=== PATIENT | female | born 1990 | race Caucasian/White ===

== ENCOUNTER 2016-05-25 08:29 | Emergency (ER) | payer OTHER ==
[~2016-05-25] VITALS: Ht 162.5 cm; Wt 88.0 kg
[2016-05-25 09:22] LABS: BASO % 0.5 % (0.0-1.0); EOS # 0.2 10*3/uL (0.0-0.4); EOS % 2.4 % (1.0-4.0); HEMATOCRIT 44.3 % (37.0-47.0); HEMOGLOBIN 14.8 g/dl (12.0-16.0); LYMPH # 2.6 10*3/uL (1.3-4.4); LYMPH % 33.1 % (27.0-41.0); MEAN CELL VOLUME 89.3 fl (81.0-99.0); MEAN CORPUSCULAR HGB 29.8 pg (27.0-31.0); MEAN CORPUSCULAR HGB CONC 33.4 g/dl (33.0-37.0); MEAN PLATELET VOLUME 10.5 fl (9.6-12.3); MONO # 0.5 10*3/uL (0.1-1.0); MONO % 6.4 % (3.0-9.0); NEUT # 4.5 10*3/uL (2.3-7.9); NEUT % 57.1 % (47.0-73.0); PLATELET COUNT AUTOMATED 259 10*3/uL (130-400); RED BLOOD COUNT 4.96 10*6/uL (4.10-5.10); WHITE BLOOD COUNT 7.9 10*3/uL (4.8-10.8)
[2016-05-25 09:30] LABS: INTERNATIONAL NORM RATIO 0.9 (2.0-3.5); PROTHROMBIN TIME 9.9 SECONDS (9.0-12.4)
[2016-05-25 09:39] LABS: ALBUMIN 3.5 gm/dl (3.1-4.5); ALKALINE PHOSPHATASE 127 U/L (45-117); BILIRUBIN, TOTAL 0.2 mg/dl (0.2-1.0); BUN 10 mg/dl (7-24); C-REACTIVE PROTEIN 4.34 MG/DL (0-0.3); CARBON DIOXIDE 27 mmol/L (21-32); CHLORIDE 107 mmol/L (98-107); CPK 84 U/L (26-192); EST GLOM FILT AFRICAN AMERICAN > 60 ml/min; GLUCOSE 115 mg/dL (65-99); MAGNESIUM 2.2 mg/dL (1.5-2.1); POTASSIUM 3.6 mmol/L (3.5-5.1); SGOT/AST 11 IU/L (3-35); SGPT/ALT 17 U/L (12-78); SODIUM 139 mmol/L (136-145); TOTAL PROTEIN 7.2 gm/dL (6.4-8.2)
[2016-05-25 09:40] LABS: CKMB < 0.5 ng/ml (0.5-3.6); TROPONIN I < 0.015 ng/ml (<0.045)
[2016-05-25] MEDS ORDERED: CYCLOBENZAPRINE10 MG PO (10:42)
[2016-05-25] MEDS ORDERED: HYDROCODONE BIT1 T11 PO (10:42)
== END 2016-05-25 11:20 | disposition home or self-care (01) ==
LOC: ED 08:29
PROVIDERS: Emergency Medicine
DX: S09.90XA Unspecified injury of head, initial encounter (principal); M54.2 Cervicalgia; M25.512 Pain in left shoulder; F41.9 Anxiety disorder, unspecified; F32.9 Major depressive disorder, single episode, unspecified; E78.5 Hyperlipidemia, unspecified; K21.9 Gastro-esophageal reflux disease without esophagitis; G43.909 Migraine, unspecified, not intractable, without status migrainosus; F17.200 Nicotine dependence, unspecified, uncomplicated; Z79.899 Other long term (current) drug therapy; V87.7XXA Person injured in collision between other specified motor vehicles (traffic), initial encounter; Y93.89 Activity, other specified; Y92.89 Other specified places as the place of occurrence of the external cause; Y99.8 Other external cause status

== ENCOUNTER → 2016-05-25 | Outpatient (CLI) | payer OTHER ==
[~2016-05-25] MED LIST: ALSUMA6 MG/0.5 M SC; AMOXICILLIN500 M2 PO; AMOXIL500 MG PO; ANAPROX DS550 MG PO; ATARAX25 MG PO; AURALGAN 15 ML15 ML OT; BRIN10TA PO; BUSPIRONE HCL10 MG PO; CELEXA10 MG PO; CIPRO250 MG PO; CLEOCIN150 MG PO; CORTISPORIN SUS10 ML OT; CYCLOBENZAPRINE10 MG PO; Fioricet 325 MG1 TAB PO; HYDROCODONE BIT1 T11 PO; IMITREX100 MG PO; INDERAL LA60 M1 PO; LASIX40 MG PO; LORAZEPAM1 MG PO; MAXALT10 MG PO; MOBIC15 MG PO; MOTRIN800 MG PO; Micro K10 MEQ PO; Motrin,Rufen800 MG PO; NAPROSYN500 MG PO; NEURONTIN300 MG PO; NEURONTIN600 MG PO; NKHM; NORCO 325 MG-51 TAB PO; PREDNICOT20 MG PO; PREDNISONE20 M1 PO; PRILOSEC40 M1 PO; PROCHLORPERAZIN10 M1 PO; ROBITUSSIN AC 10 MG/ PO; SEROQUEL400 M1 PO; TYLENOL W/CODEI1 TA2 PO; ULTRAM50 MG PO; VISTARIL50 MG PO; VITAMIN D50000 I3 PO; ZANAFLEX4 M1 PO; ZANTAC 150150 MG PO; ZOFRAN4 MG PO; ZOFRAN8 M1 PO; Zofran4 MG PO
[2016-05-25 17:06] LABS: FREE T4 0.74 ng/dl (0.76-1.46); THYROXINE (T4) TOTAL 5.4 ug/dl (4.8-13.9)
[2016-05-25 17:11] LABS: THYROID STIM HORMONE (HS) 0.814 uIU/ml (0.358-4.75)
[2016-05-26 06:14] LABS: TOTAL T3 (TT3) 002188 113 ng/dL (71-180)
[2016-05-26 08:19] LABS: RHEUMATOID ARTHRITIS FACTOR 10.8 IU/mL (0.0-13.9)
[2016-05-26 12:11] LABS: SJOGREN ANTI-SS-A <0.2 AI (0.0-0.9); SJOREN AB, ANTI-SS-B <0.2 AI (0.0-0.9)
[2016-05-26 16:15] LABS: LYME AB/TOTAL IMMUNOGLOBULINS <0.91 ISR (0.00-0.90)
== END | disposition home or self-care (01) ==
LOC: LAB 16:03
PROVIDERS: Internal Medicine Pulmonary Disease
DX: E28.2 Polycystic ovarian syndrome (principal); R06.02 Shortness of breath; R42 Dizziness and giddiness

== ENCOUNTER 2016-08-25 18:13 | Emergency (ER) | payer OTHER ==
[~2016-08-25] VITALS: Wt 83.5 kg
[2016-08-25] MEDS ORDERED: IMITREX100 MG PO (20:11)
== END 2016-08-25 20:05 | disposition home or self-care (01) ==
LOC: ED 18:13
DX: R51 Headache (principal); G43.909 Migraine, unspecified, not intractable, without status migrainosus; F17.200 Nicotine dependence, unspecified, uncomplicated; Z79.899 Other long term (current) drug therapy

== ENCOUNTER 2016-12-09 18:25 | Emergency (ER) | payer OTHER ==
[~2016-12-09] VITALS: Ht 165.1 cm; Wt 68.0 kg
[2016-12-09] MEDS ORDERED: NAPROSYN500 MG PO (19:41)
== END 2016-12-09 19:58 | disposition home or self-care (01) ==
LOC: ED 18:25
DX: T14.8XXA Other injury of unspecified body region, initial encounter (principal); V49.9XXA Car occupant (driver) (passenger) injured in unspecified traffic accident, initial encounter; Y92.488 Other paved roadways as the place of occurrence of the external cause; Y93.89 Activity, other specified; Y99.8 Other external cause status; F17.200 Nicotine dependence, unspecified, uncomplicated; F41.9 Anxiety disorder, unspecified; K21.9 Gastro-esophageal reflux disease without esophagitis; E78.00 Pure hypercholesterolemia, unspecified; F32.9 Major depressive disorder, single episode, unspecified; E78.5 Hyperlipidemia, unspecified; G43.909 Migraine, unspecified, not intractable, without status migrainosus; R56.9 Unspecified convulsions

== ENCOUNTER 2017-01-30 19:45 | Emergency (ER) | payer OTHER ==
[~2017-01-30] VITALS: Ht 162.5 cm; Wt 77.6 kg
[2017-01-30 20:14] LABS: BILIRUBIN NEGATIVE (NEGATIVE); BLOOD NEGATIVE (NEGATIVE); CLARITY SL CLOUDY (CLEAR); COLOR YELLOW (YELLOW); GLUCOSE NEGATIVE (NEGATIVE); KETONE TRACE (NEGATIVE); LEUKO ESTERASE NEGATIVE (NEGATIVE); NITRITE NEGATIVE (NEGATIVE); PH 5.5 (5.0-9.0); SPECIFIC GRAVITY >= 1.030 (1.005-1.030); UROBILINOGEN 0.2 E.U./dl (0.2-1.0)
[2017-01-30 20:18] LABS: BASO % 0.3 % (0.0-1.0); EOS # 0.2 10*3/uL (0.0-0.4); EOS % 2.1 % (1.0-4.0); HEMOGLOBIN 14.3 g/dl (12.0-16.0); LYMPH # 3.1 10*3/uL (1.3-4.4); LYMPH % 30.8 % (27.0-41.0); MEAN CELL VOLUME 89.1 fl (81.0-99.0); MEAN CORPUSCULAR HGB 31.1 pg (27.0-31.0); MEAN CORPUSCULAR HGB CONC 34.9 g/dl (33.0-37.0); MEAN PLATELET VOLUME 11.2 fl (9.6-12.3); MONO # 0.7 10*3/uL (0.1-1.0); MONO % 7.2 % (3.0-9.0); NEUT % 59.2 % (47.0-73.0); PLATELET COUNT AUTOMATED 236 10*3/uL (130-400); RED CELL DISTRI WIDTH 13.7 % (0-14.5); WHITE BLOOD COUNT 10.1 10*3/uL (4.8-10.8)
[2017-01-30 20:26] LABS: EPITHELIAL CELLS TNTC
[2017-01-30 20:28] LABS: BACTERIA 2+
[2017-01-30 20:33] LABS: ALBUMIN 3.2 gm/dl (3.1-4.5); ALKALINE PHOSPHATASE 106 U/L (45-117); BUN 10 mg/dl (7-24); CHLORIDE 107 mmol/L (98-107); CREATININE 0.88 mg/dL (0.55-1.02); LIPASE 127 U/L (73-393); POTASSIUM 3.6 mmol/L (3.5-5.1); SGOT/AST 11 IU/L (3-35); SGPT/ALT 14 U/L (12-78); SODIUM 140 mmol/L (136-145); TOTAL PROTEIN 6.5 gm/dL (6.4-8.2)
[2017-01-30] MEDS ORDERED: DICYCLOMINE HCL20 MG PO (21:24)
[2017-01-30] MEDS ORDERED: PEPCID20 MG PO (21:24)
[2017-01-31] MEDS ORDERED: PROTONIX20 MG PO (10:33)
[2017-01-31] MEDS ORDERED: TRAZODONE50 MG PO (13:01)
[2017-01-31] MEDS ORDERED: LAMICTAL100 MG PO (13:01)
[2017-01-31] MEDS ORDERED: KLONOPIN1 M1 PO (13:02)
[2017-01-31] MEDS ORDERED: PROZAC10 MG PO (13:05)
[2017-01-31] MEDS ORDERED: ABILIFY15 MG PO (13:06)
[2017-01-31] MEDS ORDERED: ZANTAC 150150 MG PO (13:07)
== END 2017-01-30 21:40 | disposition home or self-care (01) ==
LOC: ED 19:45
PROVIDERS: Physician Assistant
DX: K80.50 Calculus of bile duct without cholangitis or cholecystitis without obstruction (principal); G43.909 Migraine, unspecified, not intractable, without status migrainosus; R10.13 Epigastric pain; R10.11 Right upper quadrant pain; F17.200 Nicotine dependence, unspecified, uncomplicated; Z90.710 Acquired absence of both cervix and uterus; Z90.89 Acquired absence of other organs; Z79.899 Other long term (current) drug therapy

== ENCOUNTER 2017-01-31 09:46 | Inpatient (IN) | payer OTHER ==
[~2017-01-31] VITALS: Ht 162.6 cm; Wt 85.8 kg
--- NOTE | ~2017-01-31 | O ---
[place], [place] OPERATIVE NOTE NAME: VJ ROGERS [facility] #: [id number] UNIT #: [id number] ROOM: 506 DOCTOR: DEMETRIO SAUCEDA MD BIRTHDATE: [birth year] DOS: 02/01/2017 PREOPERATIVE DIAGNOSIS: Biliary dyskinesia. POSTOPERATIVE DIAGNOSIS: Biliary dyskinesia. PROCEDURE: Laparoscopic cholecystectomy. SURGEON: Demetrio Sauceda M.D. COREMAKER PIPE: VANESSA. ANESTHESIA: General with endotracheal intubation. INDICATIONS: This is a 27-year-old lady with a history of biliary dyskinesia, who is here for the above-mentioned procedure. The procedure and its complications were explained to the patient in detail preoperatively. Complications that were discussed included but were not limited to bleeding, infection, biloma formation, hematoma formation, abscess formation, prolonged postoperative pain, damage to underlying vital structures, inadvertent injury to common bile duct and incisional hernia formation. She agreed to proceed. DESCRIPTION OF PROCEDURE: After identifying the patient, the patient was brought to the operating suite and laid in the supine position. After induction of general anesthesia, the parts were painted and draped in the usual sterile fashion. An incision was made below the umbilicus in a transverse fashion. The skin and the subcutaneous tissue were incised and the fascia was incised vertically and 2 stay sutures with 0 Vicryl were taken on either side. The peritoneum was opened and a 12 mm Carl port was introduced into the peritoneal cavity. Under direct vision, an epigastric incision was made of 10 mm and a port was introduced. There was found to be some adhesions from her previous surgery at the right upper quadrant. These adhesions were taken down with the help of blunt and sharp dissection. Thereafter, two additional incisions were made in the right upper quadrant of 5 mm and appropriate size ports were introduced. The gallbladder was retracted superiorly and laterally. Multiple adhesions were taken down with the help of blunt and sharp dissection. Thereafter, the cystic duct and cystic artery were meticulously dissected until the critical view of safety was obtained and the triangle of Calot was identified. Each of these structures were clipped 3 times and cut between the first and the second clip. The gallbladder was then removed from the bed of the gallbladder and placed in an EndoCatch bag. It was then removed from the peritoneal cavity for histopathological diagnosis. Thereafter, hemostasis was confirmed in the liver bed. The right upper quadrant and the epigastric ports were removed and there was no bleeding seen. The umbilical port was also removed and the fascial defect was approximated with the help of 0 Vicryl in interrupted fashion. The skin edges were approximated with the help of 4-0 Vicryl after the edges were infiltrated with 1% plain lidocaine. Dressings were placed. The patient tolerated the procedure well and was extubated uneventfully and brought back to the recovery room in a stable fashion. There were no complications. Dr. Demetrio Sauceda, the attending surgeon, was present throughout [place], [place] OPERATIVE NOTE NAME: VJ ROGERS UNIT #: [id number] ROOM: [facility] DOCTOR: DEMETRIO SAUCEDA MD BIRTHDATE: [birth year] the operating case. Demetrio Sauceda MD CM:OPRECORD:OPERATIVE NOTE [id number] DEMETRIO SAUCEDA MD 02/01/17 1621 interface
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
--- NOTE | ~2017-01-31 | PR ---
[place], [place] PROGRESS NOTE NAME: VJ ROGERS UNIT #: [id number] ROOM: [facility] DOCTOR: YANNICK ZAPATA MD,HUDSON BIRTHDATE: [birth year] DOS: 02/03/2017 SUBJECTIVE: She has been successfully liberated from mechanical ventilator ____ was still noted with rather oxygen desaturation. The patient intermittently on room air. The oxygen saturation did drop at rest. She has not been noted symptoms of chest pain. Denies symptoms of hemoptysis. There was no cough. There were no symptoms of any hoarseness. OBJECTIVE: VITAL SIGNS: Normal temperature, respiratory rate 16, heart rate 70, blood pressure 97/60. The pulse oxygen saturation recorded as 94% on 2 liters nasal cannula. HEENT: Shows no acute change. NECK: Supple. CARDIOVASCULAR: S1, S2 audible. LUNGS: The patient was noted without any wheeze or crackles at present time. The breaths are noted mildly decreased bilaterally. ABDOMEN: Soft, nontender. EXTREMITIES: The patient was noted without any acute edema. LABORATORY DATA: Arterial blood gas that was done yesterday. The patient on CPAP of 5, pressure support of 10 on the ventilator, pH of 7.39, pCO2 of 42, pO2 of 83.2. IMPRESSION: Status post successful liberation from mechanical ventilation, still noted with what appear like hypoventilation for this patient may be central in origin combination possibly suspected obstructive sleep apnea disorder. PLAN OF TREATMENT: The patient's oxygen saturation has dropped to 87% and with taking a deep breath through the nose several times the oxygen saturation improved to 92%-93% saturation. She was otherwise noted awake. She has been receiving the Vicodin for the pain management, received Vicodin a couple of hours earlier. Vital signs, which has been otherwise recorded that was noted as normal. Ambulation for the patient, minimize the pain medical management, avoiding the central narcotics medication, obtaining arterial blood gas, the patient on room air to assess the hypoventilation. Other supportive therapy, plan of management and care. Usual treatment, care plan of therapies. Additional treatment changes will be made for the patient based on the progression of the illness. [place], [place] PROGRESS NOTE NAME: VJ ROGERS UNIT #: [id number] ROOM: [facility] DOCTOR: HUDSON FONSECA MD BIRTHDATE: [birth year] HUDSON LANIER MD CM:WILLIAM [id number] HUDSON ZAPATA MD 02/03/17 1457 interface
[~2017-01-31 09:46] MED LIST changes: +DICYCLOMINE HCL20 MG PO; +PEPCID20 MG PO
[2017-01-31 09:53] VITALS: BP 110/63
[2017-01-31 10:12] LABS: BASO % 0.4 % (0.0-1.0); EOS # 0.2 10*3/uL (0.0-0.4); EOS % 2.2 % (1.0-4.0); HEMATOCRIT 39.7 % (37.0-47.0); HEMOGLOBIN 13.6 g/dl (12.0-16.0); LYMPH # 2.3 10*3/uL (1.3-4.4); LYMPH % 30.8 % (27.0-41.0); MEAN CELL VOLUME 89.4 fl (81.0-99.0); MEAN CORPUSCULAR HGB 30.6 pg (27.0-31.0); MEAN CORPUSCULAR HGB CONC 34.3 g/dl (33.0-37.0); MEAN PLATELET VOLUME 10.6 fl (9.6-12.3); MONO # 0.4 10*3/uL (0.1-1.0); MONO % 5.9 % (3.0-9.0); NEUT # 4.5 10*3/uL (2.3-7.9); NEUT % 60.2 % (47.0-73.0); PLATELET COUNT AUTOMATED 209 10*3/uL (130-400); RED BLOOD COUNT 4.44 10*6/uL (4.10-5.10); RED CELL DISTRI WIDTH 13.7 % (0-14.5); WHITE BLOOD COUNT 7.4 10*3/uL (4.8-10.8)
[2017-01-31 10:23] LABS: ACT PARTIAL THROMBO TIME 26.2 SECONDS (20.8-31.5)
[2017-01-31 10:26] LABS: ALBUMIN 3.1 gm/dl (3.1-4.5); ALKALINE PHOSPHATASE 101 U/L (45-117); BUN 10 mg/dl (7-24); CHLORIDE 108 mmol/L (98-107); CREATININE 0.84 mg/dL (0.55-1.02); LIPASE 80 U/L (73-393); POTASSIUM 4.1 mmol/L (3.5-5.1); SGOT/AST 12 IU/L (3-35); SGPT/ALT 11 U/L (12-78); SODIUM 142 mmol/L (136-145); TOTAL PROTEIN 6.4 gm/dL (6.4-8.2)
[2017-01-31] MEDS ORDERED: PROTONIX20 MG PO (10:33)
--- NOTE | 2017-01-31 11:02 | NUR ---
NURSE UNAVAILABLE TO TAKE REPORT AT THIS TIME. WILL CALL BACK.
--- NOTE | 2017-01-31 12:27 | NUR ---
PT NOW BACK FROM US. PER DR ZEPEDA HOLD OFF ON ADMISSION TILL NM TEST RESTULTS ARE BACK HE MAY DISCHARGE TO HOME.
--- NOTE | 2017-01-31 12:30 | NUR ---
Time: 1230 A 27 year old FEMALE admitted to 5E under services of RACHELLE GIRARD DO. Pt. arrived via wheel chair from ER. Chief complaint: RIGHT UPPER QUADRANT PAIN. MAZIN DOVE
--- NOTE | 2017-01-31 12:37 | NUR ---
PT TRANSFERRED TO [facility] VIA WHEELCHAIR AT THIS TIME. PT IS ALERT, ORIENTED. NO ACUTE DISTRESS.
[2017-01-31 12:44] VITALS: BP 99/66
[2017-01-31] MEDS ORDERED: LAMICTAL100 MG PO (13:01)
[2017-01-31] MEDS ORDERED: TRAZODONE50 MG PO (13:01)
[2017-01-31] MEDS ORDERED: KLONOPIN1 M1 PO (13:02)
[2017-01-31] MEDS ORDERED: PROZAC10 MG PO (13:05)
[2017-01-31] MEDS ORDERED: ABILIFY15 MG PO (13:06)
[2017-01-31] MEDS ORDERED: ZANTAC 150150 MG PO (13:07)
--- NOTE | 2017-01-31 13:20 | NUR ---
DR SAUCEDA NOTIFIED OF CONSULT. STATES PT CAN HAVE REGULAR DIET TODAY AND BE NPO AFTER MIDNIGHT.
--- NOTE | 2017-01-31 13:51 | NUR ---
MEDICATED IV MS FOR C/O RIGHT UPPER QUADRANT PAIN.
[2017-01-31 16:00] VITALS: BP 113/62
--- NOTE | 2017-01-31 19:00 | NUR ---
VACCINATED FOR FLU PER PHYSICIAN ORDER.
[2017-01-31 20:00] VITALS: BP 110/49
[2017-02-01] VITALS (22 sets, daily range): BP systolic 95–123; BP diastolic 52–72
--- NOTE | 2017-02-01 00:30 | NUR ---
PT. UP HAD SHOWER. PT. ACCIDENTALLY PULLED IV OUT WHEN REMOVING COVER IV WHILE IN SHOWER. IV started right wrist with #22 angiocath after 1st attempts. The IV site was prepped with Chloraprep. Heparin lock attached. IV solution 0.45NS infusing at 100 cc/hr. Sterile dressing applied. Patient tolerated precedure well. Procedure performed according to [facility] policy & procedure. FELECIA TIM
--- NOTE | 2017-02-01 00:45 | NUR ---
PATIENT MEDICATED WITH DILAUDID AT THIS TIME FOR COMPLAINTS OF ABDOMEN PAIN. WILL MONITOR FOR EFFECTIVENESS.
--- NOTE | 2017-02-01 01:23 | NUR ---
CALLED DR NAVARRO FOR THE OKAY TO GIVE KLONOPIN AND SEROQUEL TONIGHT, AND CONTINUE HER HOME MEDICATIONS.
--- NOTE | 2017-02-01 01:45 | NUR ---
DILAUDID EFFECTIVE, PATIENT RESTING. NO S/S OF DISTRESS NOTED AT THIS TIME.
--- NOTE | 2017-02-01 04:41 | NUR ---
PATIENT MEDICATED WITH DILAUDID AT THIS TIME FOR COMPLAINTS OF ABDOMONAL PAIN. WILL CONTINUE TO MONITOR FOR EFFECTIVENESS.
--- NOTE | 2017-02-01 06:42 | NUR ---
DILAUDID EFFECTIVE, PATIENT SLEEPING. NO S/S OF DISTRESS NOTED AT THIS TIME.
[2017-02-01 07:03] LABS: BUN 10 mg/dl (7-24); CHLORIDE 109 mmol/L (98-107); CHOLESTEROL 154 mg/dL (<200); CREATININE 0.87 mg/dL (0.55-1.02); PHOSPHOROUS 3.2 mg/dL (2.5-4.9); SGOT/AST 10 IU/L (3-35); SGPT/ALT 15 U/L (12-78); SODIUM 140 mmol/L (136-145); TOTAL PROTEIN 6.1 gm/dL (6.4-8.2); TRIGLYCERIDES 130 mg/dl (<150); VLDL CHOLESTEROL 26 mg/dL (6-40)
[2017-02-01 07:05] LABS: BASO % 0.5 % (0.0-1.0); EOS # 0.2 10*3/uL (0.0-0.4); EOS % 2.4 % (1.0-4.0); HEMOGLOBIN 13.2 g/dl (12.0-16.0); LYMPH # 2.6 10*3/uL (1.3-4.4); LYMPH % 29.7 % (27.0-41.0); MEAN CELL VOLUME 90.7 fl (81.0-99.0); MEAN CORPUSCULAR HGB 30.7 pg (27.0-31.0); MEAN CORPUSCULAR HGB CONC 33.8 g/dl (33.0-37.0); MEAN PLATELET VOLUME 11.4 fl (9.6-12.3); MONO # 0.5 10*3/uL (0.1-1.0); MONO % 5.2 % (3.0-9.0); NEUT # 5.3 10*3/uL (2.3-7.9); NEUT % 61.9 % (47.0-73.0); PLATELET COUNT AUTOMATED 198 10*3/uL (130-400); WHITE BLOOD COUNT 8.6 10*3/uL (4.8-10.8)
[2017-02-01 07:10] LABS: ALKALINE PHOSPHATASE 98 U/L (45-117); FREE T4 0.72 ng/dl (0.76-1.46); HDL CHOLESTEROL 33 mg/dl (40-60); LDL CHOLESTEROL 95 mg/dL (9-159)
--- NOTE | 2017-02-01 08:00 | NUR ---
ASSUMED CARE OF PATIENT. PATIENT WAS SITTING UP IN BED VISITING WITH HER MOTHER UPON ENTRY TO THE ROOM. PATIENT HAD NONLABORED BREATHING, SHE WAS STABLE, PLEASANT, AND COOPERATIVE. PATIENT WAS C/O OF PAIN. GAVE 2MG OF DILAUDID FOR PAIN.
--- NOTE | 2017-02-01 08:18 | NUR ---
PATIENT RECEIVED DILAUDID FOR PAIN RATED 8/10.
[2017-02-01 08:38] LABS: VITAMIN D, 25-HYDROXY 22.5 ng/mL (30-100)
--- NOTE | 2017-02-01 16:55 | NUR ---
FIO2 DECREASED TO 80%
--- NOTE | 2017-02-01 17:30 | NUR ---
PATIENT RECEIVED FROM SURGERY VIA BED INTUBATED WITH A #7. STABILITUBE PLACED AND ETT IS AT 23 @ LIP. CXR ORDERED. Arterial blood gases drawn from right brachial after 1 attempt. The procedure was explained to the patient. The Zan's test was performed with satisfactory results. The artery was palpated. Cuglmub-tnkvmtbz-sovoati prep to site. The specimen was obtained and sent to the lab on ice. Digital pressure applied x 5 minutes. Pressure dressing applied. No bleeding or hematoma. Pulses equal bilaterally. JORGE WHITE
[2017-02-01 17:43] LABS: ABG BASE EXCESS -3.6 mmol/L (-2.0-2.0); ABG HCO3 22.2 mmol/l (22-26); ABG O2 SATURATION 90.4 % (95-97); ARTERIAL BLOOD GAS PCO2 44.4 mmHg (35-45); ARTERIAL BLOOD GAS PH 7.317 (7.35-7.45); ARTERIAL BLOOD GAS PO2 61.3 mmHg (80-90)
[2017-02-01 18:46] LABS: ABG BASE EXCESS -3.5 mmol/L (-2.0-2.0); ABG HCO3 20.9 mmol/l (22-26); ABG O2 SATURATION 98.9 % (95-97); ARTERIAL BLOOD GAS PCO2 36.9 mmHg (35-45); ARTERIAL BLOOD GAS PH 7.369 (7.35-7.45)
--- NOTE | 2017-02-01 19:17 | NUR ---
DR SAUCEDA CALLED - MESSAGE LEFT CONCERNING PAIN MEDS
--- NOTE | 2017-02-01 20:39 | NUR ---
PT'S AND SISTER HERE. QUESTIONS ANSWERED AND UPDATED ON PLAN OF CARE.
--- NOTE | 2017-02-01 20:43 | NUR ---
I SPOKE WITH DR ESPINO NOTIFIED THAT DR SAUCEDA HAS NOT RETURNED CALL AND THAT WHILE PT APPEARS COMFORTABLE, THERE ARE NO PAIN MEDICATIONS ORDERED. ALSO FAMILY CONCERN THAT PT UNABLE TO GET HER KLONOPIN SINCE ON VENTILATOR AND NO OGT. ALSO NO ANTIBIOTICS ORDERED IN CASE THIS WAS NEEDED.
[2017-02-02] VITALS (9 sets, daily range): BP systolic 98–119; BP diastolic 55–70
--- NOTE | 2017-02-02 00:05 | NUR ---
PT CHECKED FOR INCONTINENCE...UNDERLINENS ARE DRY AT THIS TIME AND PT STATES "NO" WHEN I ASKED HER IF SHE HAD TO URINATE. SHIFT DIRECTOR HERE AND VIEWED WOUND ON COCCYX.
--- NOTE | 2017-02-02 01:46 | NUR ---
AT 0115 PT RESTLESS, GRIMACING AND HR 110/MIN. NODS HEAD TO QUESTION OF PAIN. WAS MEDICATED WITH DILAUDID AT 0120 ORDERED. EFFECTIVE...PT SLEEPING, BODY RELAXED, HR 80'S.
[2017-02-02 05:23] LABS: ABG BASE EXCESS -0.6 mmol/L (-2.0-2.0); ABG HCO3 23.7 mmol/l (22-26); ABG O2 SATURATION 98.7 % (95-97); ARTERIAL BLOOD GAS PCO2 39.6 mmHg (35-45); ARTERIAL BLOOD GAS PH 7.392 (7.35-7.45)
[2017-02-02 05:26] LABS: ALKALINE PHOSPHATASE 92 U/L (45-117); BUN 5 mg/dl (7-24); CHLORIDE 107 mmol/L (98-107); CREATININE 0.61 mg/dL (0.55-1.02); POTASSIUM 4.1 mmol/L (3.5-5.1); SGOT/AST 60 IU/L (3-35); SGPT/ALT 41 U/L (12-78); SODIUM 142 mmol/L (136-145); TOTAL PROTEIN 6.2 gm/dL (6.4-8.2)
[2017-02-02 05:52] LABS: BASO % 0.1 % (0.0-1.0); HEMATOCRIT 37.8 % (37.0-47.0); HEMOGLOBIN 12.8 g/dl (12.0-16.0); LYMPH # 1.1 10*3/uL (1.3-4.4); LYMPH % 7.6 % (27.0-41.0); MEAN CORPUSCULAR HGB 31.1 pg (27.0-31.0); MEAN CORPUSCULAR HGB CONC 33.9 g/dl (33.0-37.0); MEAN PLATELET VOLUME 11.5 fl (9.6-12.3); MONO # 0.7 10*3/uL (0.1-1.0); MONO % 4.9 % (3.0-9.0); NEUT # 12.3 10*3/uL (2.3-7.9); NEUT % 86.9 % (47.0-73.0); PLATELET COUNT AUTOMATED 224 10*3/uL (130-400); RED BLOOD COUNT 4.11 10*6/uL (4.10-5.10); RED CELL DISTRI WIDTH 13.6 % (0-14.5); WHITE BLOOD COUNT 14.1 10*3/uL (4.8-10.8)
--- NOTE | 2017-02-02 06:03 | NUR ---
DILAUDID GIVEN AT 0500 FOR GRIMACING AND WRITHING IN BED WAS EFFECTIVE. BODY RELAXED.
--- NOTE | 2017-02-02 08:30 | NUR ---
Computer Technology Instructor in to see patient. She is intubated at this time. Discharge plan undecided.
--- NOTE | 2017-02-02 09:15 | NUR ---
SEDATION SHUT OFF PER DR.AZIZ GIBSON.
--- NOTE | 2017-02-02 09:25 | NUR ---
RESPIRATORY HERE AND CHANGED VENTILATOR SETTINGS TO CPAP.
--- NOTE | 2017-02-02 10:20 | NUR ---
PATIENT C/O ABDOMINAL PAIN DUE TO EXCESSIVE COUGHING. MEDICATED WITH DILAUDID PER PRN ORDER. WILL CONTINUE TO MONITOR.
[2017-02-02 11:39] LABS: ABG BASE EXCESS 0.7 mmol/L (-2.0-2.0); ABG HCO3 25.3 mmol/l (22-26); ABG O2 SATURATION 96.5 % (95-97); ARTERIAL BLOOD GAS PCO2 42.7 mmHg (35-45); ARTERIAL BLOOD GAS PH 7.39 (7.35-7.45); ARTERIAL BLOOD GAS PO2 83.2 mmHg (80-90)
--- NOTE | 2017-02-02 11:45 | NUR ---
PATIENT EXTUBATED. PLACED ON 3LNC. NO DISTRESS NOTED AT THIS TIME.
--- NOTE | 2017-02-02 13:30 | NUR ---
PATIENT C/O ABDOMINAL PAIN. MEDICATED WITH DILAUDID PER PRN ORDER. WILL CONTINUE TO MONITOR.
[2017-02-02] MEDS ORDERED: KLONOPIN1 M1 PO (13:44)
--- NOTE | 2017-02-02 16:00 | NUR ---
MEDICaTED WITH PRN DILAUDID PER ORDER AND REQUEST.
--- NOTE | 2017-02-02 20:04 | NUR ---
FAMILY MEMBERS VISIT. PT UP IN RECLINER CHAIR. SCD'S PLACED ON PT AND ARE FUNCTIONAL. VSS. PULSE OX MID 90'S ON NC3. QUESTIONS ANSWERED. NO COMPLAINTS OFFERED AT THIS TIME.
--- NOTE | 2017-02-02 22:00 | NUR ---
NORCO GIVEN [id number] FOR C/O PAIN AT INCISIONAL PUNCTURE SITES 07/24 EFFECTIVE PER PT. BODY RELAXED. FAMILY MEMBER REMAINS SUPPORTIVE AT BEDSIDE.
--- NOTE | 2017-02-02 23:34 | NUR ---
PT HAD BEEN SLEEPING, BUT PUTS HER CALL LIGHT ON AND STATES "THAT PAIN PILL REALLY ISN'T WORKING." DR NAVARRO NOTIFIED.
[2017-02-03] VITALS: BP 96/54
--- NOTE | 2017-02-03 00:12 | NUR ---
MORPHINE APPEARS TO BE EFFECTIVE FOR PAIN. PT DOZING. SHE HAD VOIDED IN BATHROOM PRIOR TO MED ADMINISTRATION. IN BED NOW WITH SCD'S ON, CALL LIGHT IN REACH. VSS.
--- NOTE | 2017-02-03 03:16 | NUR ---
PT UP AND DOWN SEVERAL TIMES TO BATHROOM. NOW WANTS UP TO CHAIR. ASSISTED UP TO RECLINER CHAIR. UPON DISCOVERING THAT PT ACCIDENTALLY SPILLED WATER PITCHER IN BED AND BED LINENS CHANGED, 3 PILLS WERE FOUND IN PT'S BED. THEY WERE PT'S BENTYL AND PROZAC FROM HER PURSE. INSTRUCTED NOT TO TAKE ANY OTHER MEDICATIONS OTHER THAN WHAT WE GIVE HIM AND RATIONALE TO WHY. UPON WANTING TO SEND HER HOME MEDICATIONS TO PHARMACY, PT JUST ASKS THAT WE KEEP HER PURSE OUT IN NURSING STATION AND HER SPOUSE WILL TAKE IT HOME TOMORROW.
[2017-02-03 04:00] VITALS: BP 90/47
--- NOTE | 2017-02-03 05:17 | NUR ---
PT ASSISTED BACK TO BED. SCD'S ON. CONTINUED TO DEEP BREATHING AND COUGHING. CALL LIGHT IN REACH.
--- NOTE | 2017-02-03 05:23 | NUR ---
PT'S PURSE IN LOCKBOX.
--- NOTE | 2017-02-03 07:59 | NUR ---
PATIENT C/O ABDOMINAL PAIN AT INSICION SITES. MEDICATED WITH NORCO PER PRN ORDER. WILL CONTINUE TO MONITOR.
[2017-02-03 08:00] VITALS: BP 97/60
--- NOTE | 2017-02-03 08:30 | NUR ---
REMOVED O2 TO EVALUATE POX ON RA.
--- NOTE | 2017-02-03 08:30 | NUR ---
Boring Machine Operator Production in to talk to patient. Patient states lives at home with her . There are 15 steps in the home. Physician: Summer Rodrigues Pharmacy: [facility] Home health services: none Patient's level of ADLs: INDEPENDENT Patient has working utilities: yes DME: none Follow-up physician's appointment after d/c: will be made by the hospitalist nurse director upon discharge Does patient want to access PORTAL?: no Discharge plan discussed with patient. She lives at home with her . She is independent in her ADLs and ambulation. When medically stable she will be discharged to home. JOVANI SEVILLA
--- NOTE | 2017-02-03 09:30 | NUR ---
HERE AND INFORMED OF PATIENT POX OF 87% ON RA. HE STATED TO PATIENT THAT HE WOULD LIKE HER TO STAY ONE MORE DAY TO ASSESS OXYGENATION. AFTER LEFT SHE STATED THAT SHE DOES NOT WANT TO STAY AND THAT SHE MAY SIGN OUT AGAINST MEDICAL ADVICE. RN DISCUSSED RISKS OF LEAVING AND PATIENT STATED THAT SHE WAS AWARE AND WOULD LIKE TIME TO DISCUSS WITH WHAT THEY ARE GOING TO DO.
--- NOTE | 2017-02-03 10:01 | NUR ---
, , AND RAMPMAN NOTIFIED OF PATIENT SIGNING OUT AGAINST MEDICAL ADVICE.
--- NOTE | 2017-02-03 10:20 | NUR ---
PATIENT SIGNED OUT AGAINST MEDICAL ADVICE. PATIENT STATES SHE HAS AN APPOINTMENT TODAY WITH HER PRIMARY CARE PHYSICIAN. SHE ALSO STATES THAT SHE IS GOING TO GO BUY A PULSE OXIMETER TO CHECK ON HER OXYGENATION. IV AND AIRLINE STATION AGENT DISCONTINUED.
== END 2017-02-03 10:20 | disposition left against medical advice (07) | DRG 417 ==
LOC: ED 09:46 → EDHOLD 10:51 → ICCU 10:51 → 5E 10:51 → ICCU 02-01 16:34
PROVIDERS: Emergency Medicine; Internal Medicine Critical Care Medicine; Registered Nurse; Surgery; ADMIT Emergency Medicine
PROC: 0FT44ZZ Resection of Gallbladder, Percutaneous Endoscopic Approach (ICD-10-PCS; principal; 2017-02-01)
PROC: 5A1935Z Respiratory Ventilation, Less than 24 Consecutive Hours (ICD-10-PCS; 2017-02-01)
PROC: 0BH17EZ Insertion of Endotracheal Airway into Trachea, Via Natural or Artificial Opening (ICD-10-PCS; 2017-02-01)
DX: K80.42 Calculus of bile duct with acute cholecystitis without obstruction (principal); J96.01 Acute respiratory failure with hypoxia; E44.0 Moderate protein-calorie malnutrition; J98.11 Atelectasis; J44.9 Chronic obstructive pulmonary disease, unspecified; K21.9 Gastro-esophageal reflux disease without esophagitis; E78.5 Hyperlipidemia, unspecified; G43.909 Migraine, unspecified, not intractable, without status migrainosus; E83.51 Hypocalcemia; F41.1 Generalized anxiety disorder; F17.210 Nicotine dependence, cigarettes, uncomplicated; E66.01 Morbid (severe) obesity due to excess calories; F31.9 Bipolar disorder, unspecified; K58.9 Irritable bowel syndrome, unspecified; F43.10 Post-traumatic stress disorder, unspecified; I49.8 Other specified cardiac arrhythmias; Z53.21 Procedure and treatment not carried out due to patient leaving prior to being seen by health care provider; Z68.32 Body mass index [BMI] 32.0-32.9, adult; Z71.6 Tobacco abuse counseling; Z80.8 Family history of malignant neoplasm of other organs or systems; Z80.49 Family history of malignant neoplasm of other genital organs; Z82.61 Family history of arthritis; Z82.49 Family history of ischemic heart disease and other diseases of the circulatory system; Z90.710 Acquired absence of both cervix and uterus; Z90.89 Acquired absence of other organs; Z79.899 Other long term (current) drug therapy; K82.8 Other specified diseases of gallbladder

== ENCOUNTER 2017-02-05 18:45 | Emergency (ER) | payer OTHER ==
[~2017-02-05] VITALS: Ht 162.5 cm; Wt 85.3 kg
[~2017-02-05 18:45] MED LIST changes: +ABILIFY15 MG PO; +KLONOPIN1 M1 PO; +LAMICTAL100 MG PO; +PROTONIX20 MG PO; +PROZAC10 MG PO; +TRAZODONE50 MG PO
[2017-02-05 19:38] LABS: BASO % 0.2 % (0.0-1.0); EOS % 0.4 % (1.0-4.0); HEMATOCRIT 39.5 % (37.0-47.0); HEMOGLOBIN 13.4 g/dl (12.0-16.0); LYMPH # 1.6 10*3/uL (1.3-4.4); LYMPH % 15.2 % (27.0-41.0); MEAN CELL VOLUME 90.6 fl (81.0-99.0); MEAN CORPUSCULAR HGB 30.7 pg (27.0-31.0); MEAN CORPUSCULAR HGB CONC 33.9 g/dl (33.0-37.0); MEAN PLATELET VOLUME 10.6 fl (9.6-12.3); MONO # 0.5 10*3/uL (0.1-1.0); MONO % 4.6 % (3.0-9.0); NEUT # 8.5 10*3/uL (2.3-7.9); NEUT % 78.9 % (47.0-73.0); PLATELET COUNT AUTOMATED 257 10*3/uL (130-400); RED BLOOD COUNT 4.36 10*6/uL (4.10-5.10); RED CELL DISTRI WIDTH 13.5 % (0-14.5); WHITE BLOOD COUNT 10.8 10*3/uL (4.8-10.8)
[2017-02-05 19:53] LABS: ALBUMIN 3.2 gm/dl (3.1-4.5); ALKALINE PHOSPHATASE 111 U/L (45-117); BUN 12 mg/dl (7-24); CHLORIDE 107 mmol/L (98-107); POTASSIUM 4.2 mmol/L (3.5-5.1); SGOT/AST 23 IU/L (3-35); SGPT/ALT 49 U/L (12-78); SODIUM 140 mmol/L (136-145); TOTAL PROTEIN 6.9 gm/dL (6.4-8.2)
[2017-02-05 20:04] LABS: TROPONIN I < 0.015 ng/ml (<0.045)
[2017-02-05] MEDS ORDERED: NYST SUSP PO (20:42)
[2017-02-05] MEDS ORDERED: MEDROL DOSEPAK4 MG PO (20:42)
[2017-02-05] MEDS ORDERED: DIFLUCAN150 MG PO (20:42)
[2017-02-05] MEDS ORDERED: LEVAQUIN750 M1 PO (20:42)
== END 2017-02-05 22:13 | disposition left against medical advice (07) ==
LOC: ED 18:45
PROVIDERS: Nurse Practitioner Family
DX: R06.02 Shortness of breath (principal); J02.9 Acute pharyngitis, unspecified; J44.9 Chronic obstructive pulmonary disease, unspecified; F41.9 Anxiety disorder, unspecified; F32.9 Major depressive disorder, single episode, unspecified; K21.9 Gastro-esophageal reflux disease without esophagitis; G43.909 Migraine, unspecified, not intractable, without status migrainosus; R73.9 Hyperglycemia, unspecified; E78.5 Hyperlipidemia, unspecified; E83.41 Hypermagnesemia; K58.9 Irritable bowel syndrome, unspecified; F10.10 Alcohol abuse, uncomplicated; Z68.34 Body mass index [BMI] 34.0-34.9, adult; Z79.899 Other long term (current) drug therapy; Z90.710 Acquired absence of both cervix and uterus

== ENCOUNTER 2017-02-22 18:38 | Emergency (ER) | payer OTHER ==
[~2017-02-22] VITALS: Ht 162.5 cm; Wt 82.1 kg
[~2017-02-22 18:38] MED LIST changes: +DIFLUCAN150 MG PO; +LEVAQUIN750 M1 PO; +MEDROL DOSEPAK4 MG PO; +NYST SUSP PO
[2017-02-22 20:00] LABS: BASO % 0.3 % (0.0-1.0); EOS # 0.2 10*3/uL (0.0-0.4); EOS % 1.7 % (1.0-4.0); HEMATOCRIT 42.9 % (37.0-47.0); HEMOGLOBIN 14.7 g/dl (12.0-16.0); LYMPH # 3.3 10*3/uL (1.3-4.4); LYMPH % 32.4 % (27.0-41.0); MEAN CELL VOLUME 90.1 fl (81.0-99.0); MEAN CORPUSCULAR HGB 30.9 pg (27.0-31.0); MEAN CORPUSCULAR HGB CONC 34.3 g/dl (33.0-37.0); MEAN PLATELET VOLUME 10.9 fl (9.6-12.3); MONO # 0.6 10*3/uL (0.1-1.0); MONO % 6.2 % (3.0-9.0); NEUT % 59.1 % (47.0-73.0); PLATELET COUNT AUTOMATED 234 10*3/uL (130-400); RED BLOOD COUNT 4.76 10*6/uL (4.10-5.10); RED CELL DISTRI WIDTH 13.2 % (0-14.5); WHITE BLOOD COUNT 10.1 10*3/uL (4.8-10.8)
[2017-02-22 20:14] LABS: ALBUMIN 3.4 gm/dl (3.1-4.5); ALKALINE PHOSPHATASE 123 U/L (45-117); BUN 11 mg/dl (7-24); CHLORIDE 108 mmol/L (98-107); LIPASE 96 U/L (73-393); SGOT/AST 8 IU/L (3-35); SGPT/ALT 15 U/L (12-78); SODIUM 138 mmol/L (136-145); TOTAL PROTEIN 7.3 gm/dL (6.4-8.2)
[2017-02-22 22:13] LABS: BILIRUBIN NEGATIVE (NEGATIVE); BLOOD TRACE-INTACT (NEGATIVE); CLARITY SL CLOUDY (CLEAR); COLOR YELLOW (YELLOW); GLUCOSE NEGATIVE (NEGATIVE); KETONE NEGATIVE (NEGATIVE); LEUKO ESTERASE NEGATIVE (NEGATIVE); NITRITE NEGATIVE (NEGATIVE); PH 5.5 (5.0-9.0); UROBILINOGEN 0.2 E.U./dl (0.2-1.0)
[2017-02-22 22:48] LABS: BACTERIA TRACE; EPITHELIAL CELLS 20-25; WBC 0-2 wbc/hpf (0-5)
== END 2017-02-22 22:59 | disposition home or self-care (01) ==
LOC: ED 18:38
PROVIDERS: Nurse Practitioner Family
DX: N20.0 Calculus of kidney (principal); R10.31 Right lower quadrant pain; F17.200 Nicotine dependence, unspecified, uncomplicated; J44.9 Chronic obstructive pulmonary disease, unspecified; K21.9 Gastro-esophageal reflux disease without esophagitis; G43.909 Migraine, unspecified, not intractable, without status migrainosus; E66.9 Obesity, unspecified; Z68.34 Body mass index [BMI] 34.0-34.9, adult; Z90.710 Acquired absence of both cervix and uterus; Z90.89 Acquired absence of other organs; Z79.899 Other long term (current) drug therapy

== ENCOUNTER 2017-04-10 19:26 | Emergency (ER) | payer OTHER ==
[~2017-04-10] VITALS: Ht 167.6 cm; Wt 99.8 kg
[2017-04-10] MEDS ORDERED: AVPAK AZITHROM250 M1 PO (20:38)
== END 2017-04-10 20:45 | disposition home or self-care (01) ==
LOC: ED 19:26
DX: J18.9 Pneumonia, unspecified organism (principal); K21.9 Gastro-esophageal reflux disease without esophagitis; J44.9 Chronic obstructive pulmonary disease, unspecified; F32.9 Major depressive disorder, single episode, unspecified; E78.5 Hyperlipidemia, unspecified; F41.9 Anxiety disorder, unspecified; F17.200 Nicotine dependence, unspecified, uncomplicated; F10.10 Alcohol abuse, uncomplicated; G43.909 Migraine, unspecified, not intractable, without status migrainosus; F43.10 Post-traumatic stress disorder, unspecified; K58.9 Irritable bowel syndrome, unspecified; R73.9 Hyperglycemia, unspecified; Z90.710 Acquired absence of both cervix and uterus; Z68.34 Body mass index [BMI] 34.0-34.9, adult; Z79.899 Other long term (current) drug therapy

== ENCOUNTER 2017-04-27 20:27 | Emergency (ER) | payer OTHER ==
[~2017-04-27] VITALS: Ht 162.5 cm; Wt 86.2 kg
[~2017-04-27 20:27] MED LIST changes: +AVPAK AZITHROM250 M1 PO
[2017-04-27 21:25] LABS: BILIRUBIN NEGATIVE (NEGATIVE); BLOOD TRACE-INTACT (NEGATIVE); CLARITY CLOUDY (CLEAR); COLOR YELLOW (YELLOW); GLUCOSE NEGATIVE (NEGATIVE); KETONE NEGATIVE (NEGATIVE); LEUKO ESTERASE NEGATIVE (NEGATIVE); NITRITE NEGATIVE (NEGATIVE); PH 6.5 (5.0-9.0); SPECIFIC GRAVITY >= 1.030 (1.005-1.030); UROBILINOGEN 0.2 E.U./dl (0.2-1.0)
[2017-04-27 21:25] LABS: BASO % 0.5 % (0.0-1.0); EOS # 0.2 10*3/uL (0.0-0.4); EOS % 2.9 % (1.0-4.0); HEMATOCRIT 45.3 % (37.0-47.0); HEMOGLOBIN 15.1 g/dl (12.0-16.0); LYMPH # 2.8 10*3/uL (1.3-4.4); LYMPH % 36.9 % (27.0-41.0); MEAN CELL VOLUME 90.1 fl (81.0-99.0); MEAN CORPUSCULAR HGB CONC 33.3 g/dl (33.0-37.0); MONO # 0.5 10*3/uL (0.1-1.0); MONO % 6.3 % (3.0-9.0); NEUT % 52.3 % (47.0-73.0); PLATELET COUNT AUTOMATED 283 10*3/uL (130-400); RED BLOOD COUNT 5.03 10*6/uL (4.10-5.10); RED CELL DISTRI WIDTH 13.2 % (0-14.5); WHITE BLOOD COUNT 7.6 10*3/uL (4.8-10.8)
[2017-04-27 21:33] LABS: BACTERIA 4+; EPITHELIAL CELLS 16-20; MUCOUS TRACE
[2017-04-27 21:41] LABS: ALBUMIN 3.4 gm/dl (3.1-4.5); ALKALINE PHOSPHATASE 140 U/L (45-117); BUN 9 mg/dl (7-24); CHLORIDE 106 mmol/L (98-107); CREATININE 0.94 mg/dL (0.55-1.02); LIPASE 73 U/L (73-393); POTASSIUM 4.2 mmol/L (3.5-5.1); SGOT/AST 11 IU/L (3-35); SGPT/ALT 17 U/L (12-78); SODIUM 139 mmol/L (136-145); TOTAL PROTEIN 7.2 gm/dL (6.4-8.2)
== END 2017-04-27 22:38 | disposition home or self-care (01) ==
LOC: ED 20:27
PROVIDERS: Physician Assistant
DX: K59.00 Constipation, unspecified (principal); R10.84 Generalized abdominal pain; K58.9 Irritable bowel syndrome, unspecified; K21.9 Gastro-esophageal reflux disease without esophagitis; G43.909 Migraine, unspecified, not intractable, without status migrainosus; M79.7 Fibromyalgia; F17.200 Nicotine dependence, unspecified, uncomplicated; Z90.710 Acquired absence of both cervix and uterus; Z98.890 Other specified postprocedural states; Z79.899 Other long term (current) drug therapy

== ENCOUNTER 2017-06-04 01:48 | Emergency (ER) | payer OTHER ==
[~2017-06-04] VITALS: Ht 160 cm; Wt 81.6 kg
[2017-06-04 02:29] LABS: ABG BASE EXCESS -1.1 mmol/L (-2.0-2.0); ABG HCO3 22.8 mmol/l (22-26); ABG O2 SATURATION 90.9 % (95-97); ARTERIAL BLOOD GAS PCO2 37.4 mmHg (35-45); ARTERIAL BLOOD GAS PH 7.402 (7.35-7.45); ARTERIAL BLOOD GAS PO2 59.8 mmHg (80-90)
[2017-06-04 02:32] LABS: BILIRUBIN 1+ (NEGATIVE); BLOOD TRACE-INTACT (NEGATIVE); CLARITY SL CLOUDY (CLEAR); COLOR YELLOW (YELLOW); GLUCOSE NEGATIVE (NEGATIVE); KETONE TRACE (NEGATIVE); LEUKO ESTERASE NEGATIVE (NEGATIVE); NITRITE NEGATIVE (NEGATIVE); PH 5.5 (5.0-9.0); SPECIFIC GRAVITY >= 1.030 (1.005-1.030); UROBILINOGEN 0.2 E.U./dl (0.2-1.0)
[2017-06-04 02:35] LABS: BASO % 0.4 % (0.0-1.0); EOS # 0.3 10*3/uL (0.0-0.4); HEMATOCRIT 42.6 % (37.0-47.0); HEMOGLOBIN 14.1 g/dl (12.0-16.0); LYMPH # 3.6 10*3/uL (1.3-4.4); LYMPH % 40.6 % (27.0-41.0); MEAN CELL VOLUME 89.5 fl (81.0-99.0); MEAN CORPUSCULAR HGB 29.6 pg (27.0-31.0); MEAN CORPUSCULAR HGB CONC 33.1 g/dl (33.0-37.0); MEAN PLATELET VOLUME 9.9 fl (9.6-12.3); MONO # 0.5 10*3/uL (0.1-1.0); MONO % 5.4 % (3.0-9.0); NEUT # 4.4 10*3/uL (2.3-7.9); NEUT % 49.7 % (47.0-73.0); PLATELET COUNT AUTOMATED 272 10*3/uL (130-400); RED BLOOD COUNT 4.76 10*6/uL (4.10-5.10); RED CELL DISTRI WIDTH 13.2 % (0-14.5); WHITE BLOOD COUNT 8.9 10*3/uL (4.8-10.8)
[2017-06-04 02:38] LABS: EPITHELIAL CELLS 45-50; WBC 0-2 wbc/hpf (0-5)
[2017-06-04 02:39] LABS: BACTERIA TRACE
[2017-06-04 02:44] LABS: INTERNATIONAL NORM RATIO 0.9 (2.0-3.5)
[2017-06-04 02:50] LABS: ALKALINE PHOSPHATASE 152 U/L (45-117); BUN 11 mg/dl (7-24); CHLORIDE 105 mmol/L (98-107); CREATININE 0.85 mg/dL (0.55-1.02); LIPASE 82 U/L (73-393); POTASSIUM 3.5 mmol/L (3.5-5.1); SGOT/AST 20 IU/L (3-35); SGPT/ALT 28 U/L (12-78); SODIUM 138 mmol/L (136-145); TOTAL PROTEIN 6.7 gm/dL (6.4-8.2)
[2017-06-04] MEDS ORDERED: LEVOFLOXACIN500 MG PO (04:45)
== END 2017-06-04 04:27 | disposition left against medical advice (07) ==
LOC: ED 01:48
PROVIDERS: Emergency Medicine Emergency Medical Services
DX: J18.9 Pneumonia, unspecified organism (principal); R09.02 Hypoxemia; J44.9 Chronic obstructive pulmonary disease, unspecified; K21.9 Gastro-esophageal reflux disease without esophagitis; E78.5 Hyperlipidemia, unspecified; F17.200 Nicotine dependence, unspecified, uncomplicated; G43.909 Migraine, unspecified, not intractable, without status migrainosus; E66.9 Obesity, unspecified; Z68.34 Body mass index [BMI] 34.0-34.9, adult; Z87.442 Personal history of urinary calculi; Z90.710 Acquired absence of both cervix and uterus; Z90.89 Acquired absence of other organs; Z79.899 Other long term (current) drug therapy

== ENCOUNTER 2017-06-29 09:53 | Emergency (ER) | payer OTHER ==
[~2017-06-29] VITALS: Ht 162.5 cm; Wt 81.6 kg
[~2017-06-29 09:53] MED LIST changes: +LEVOFLOXACIN500 MG PO
== END 2017-06-29 13:26 | disposition home or self-care (01) ==
LOC: ED 09:53
DX: S61.412A Laceration without foreign body of left hand, initial encounter (principal); F17.200 Nicotine dependence, unspecified, uncomplicated; Z90.710 Acquired absence of both cervix and uterus; Z23 Encounter for immunization; Z90.89 Acquired absence of other organs; Z98.890 Other specified postprocedural states; Z79.899 Other long term (current) drug therapy; W27.8XXA Contact with other nonpowered hand tool, initial encounter; Y93.89 Activity, other specified; Y92.89 Other specified places as the place of occurrence of the external cause; Y99.9 Unspecified external cause status

== ENCOUNTER 2017-08-13 23:22 | Emergency (ER) | payer OTHER ==
[~2017-08-13] VITALS: Ht 154.9 cm; Wt 86.2 kg
[2017-08-13] MEDS ORDERED: VISTARIL50 MG PO (23:26)
[2017-08-13 23:50] LABS: BASO # 0.1 10*3/uL (0.0-0.1); BASO % 0.5 % (0.0-1.0); EOS # 0.2 10*3/uL (0.0-0.4); EOS % 1.6 % (1.0-4.0); HEMATOCRIT 41.9 % (37.0-47.0); HEMOGLOBIN 14.2 g/dl (12.0-16.0); LYMPH # 3.6 10*3/uL (1.3-4.4); LYMPH % 30.5 % (27.0-41.0); MEAN CELL VOLUME 89.1 fl (81.0-99.0); MEAN CORPUSCULAR HGB 30.2 pg (27.0-31.0); MEAN CORPUSCULAR HGB CONC 33.9 g/dl (33.0-37.0); MEAN PLATELET VOLUME 10.9 fl (9.6-12.3); MONO # 0.7 10*3/uL (0.1-1.0); MONO % 5.8 % (3.0-9.0); NEUT # 7.2 10*3/uL (2.3-7.9); NEUT % 61.3 % (47.0-73.0); PLATELET COUNT AUTOMATED 244 10*3/uL (130-400); RED CELL DISTRI WIDTH 14.1 % (0-14.5); WHITE BLOOD COUNT 11.8 10*3/uL (4.8-10.8)
[2017-08-14 00:09] LABS: ALBUMIN 3.3 gm/dl (3.1-4.5); ALKALINE PHOSPHATASE 125 U/L (45-117); BUN 16 mg/dl (7-24); CHLORIDE 109 mmol/L (98-107); CREATININE 0.95 mg/dL (0.55-1.02); LIPASE 76 U/L (73-393); POTASSIUM 3.7 mmol/L (3.5-5.1); SGOT/AST 8 IU/L (3-35); SGPT/ALT 15 U/L (12-78); SODIUM 140 mmol/L (136-145)
[2017-08-14 00:42] LABS: BILIRUBIN NEGATIVE (NEGATIVE); BLOOD NEGATIVE (NEGATIVE); CLARITY SL CLOUDY (CLEAR); COLOR YELLOW (YELLOW); GLUCOSE NEGATIVE (NEGATIVE); KETONE NEGATIVE (NEGATIVE); LEUKO ESTERASE NEGATIVE (NEGATIVE); NITRITE NEGATIVE (NEGATIVE); SPECIFIC GRAVITY 1.025 (1.005-1.030); UROBILINOGEN 0.2 E.U./dl (0.2-1.0)
[2017-08-14 00:53] LABS: URINE AMPHETAMINES > 1000 (1000ng/ml); URINE BARBITURATES < 200 (200ng/ml); URINE BENZODIAZEPINES > 200 (200ng/ml); URINE CANNABINOIDS (THC) < 50 (50ng/ml); URINE COCAINE < 300 (300ng/ml); URINE METHADONE < 300 (300ng/ml); URINE OPIATES < 300 (300ng/ml); URINE PHENCYCLIDINE < 25 (25ng/ml)
[2017-08-14 00:59] LABS: BACTERIA 3+; EPITHELIAL CELLS 25-30
[2017-09-30] MEDS ORDERED: MEDROL DOSEPAK4 MG PO (10:14)
[2017-09-30] MEDS ORDERED: CYCLOBENZAPRINE10 MG PO (10:14)
== END 2017-08-14 04:19 | disposition home or self-care (01) ==
LOC: ED 23:22
PROVIDERS: Physician Assistant
DX: N83.201 Unspecified ovarian cyst, right side (principal); G43.909 Migraine, unspecified, not intractable, without status migrainosus; J44.9 Chronic obstructive pulmonary disease, unspecified; K21.9 Gastro-esophageal reflux disease without esophagitis; E78.5 Hyperlipidemia, unspecified; E66.9 Obesity, unspecified; Z68.34 Body mass index [BMI] 34.0-34.9, adult; Z90.710 Acquired absence of both cervix and uterus; Z90.721 Acquired absence of ovaries, unilateral; Z79.899 Other long term (current) drug therapy

== ENCOUNTER 2017-08-25 12:25 | Emergency (ER) | payer OTHER ==
[~2017-08-25] VITALS: Ht 162.5 cm; Wt 79.4 kg
[2017-08-25] MEDS ORDERED: LETROZOLE2.5 M2 PO (12:46)
[2017-08-25 13:34] LABS: ALBUMIN 3.7 gm/dl (3.1-4.5); ALKALINE PHOSPHATASE 94 U/L (45-117); BUN 14 mg/dl (7-24); CHLORIDE 107 mmol/L (98-107); CREATININE 0.98 mg/dL (0.55-1.02); POTASSIUM 3.9 mmol/L (3.5-5.1); SGOT/AST 8 IU/L (3-35); SGPT/ALT 17 U/L (12-78); SODIUM 137 mmol/L (136-145); TOTAL PROTEIN 6.8 gm/dL (6.4-8.2)
[2017-08-25 13:44] LABS: BASO % 0.3 % (0.0-1.0); EOS # 0.2 10*3/uL (0.0-0.4); EOS % 1.7 % (1.0-4.0); HEMOGLOBIN 14.1 g/dl (12.0-16.0); LYMPH # 3.3 10*3/uL (1.3-4.4); LYMPH % 26.5 % (27.0-41.0); MEAN CELL VOLUME 89.7 fl (81.0-99.0); MEAN CORPUSCULAR HGB 30.1 pg (27.0-31.0); MEAN CORPUSCULAR HGB CONC 33.6 g/dl (33.0-37.0); MEAN PLATELET VOLUME 10.4 fl (9.6-12.3); MONO # 0.8 10*3/uL (0.1-1.0); NEUT # 8.1 10*3/uL (2.3-7.9); NEUT % 65.1 % (47.0-73.0); PLATELET COUNT AUTOMATED 246 10*3/uL (130-400); RED BLOOD COUNT 4.68 10*6/uL (4.10-5.10); RED CELL DISTRI WIDTH 13.9 % (0-14.5); WHITE BLOOD COUNT 12.5 10*3/uL (4.8-10.8)
[2017-08-25 14:11] LABS: BILIRUBIN NEGATIVE (NEGATIVE); BLOOD 3+ (NEGATIVE); CLARITY CLEAR (CLEAR); COLOR YELLOW (YELLOW); GLUCOSE NEGATIVE (NEGATIVE); KETONE NEGATIVE (NEGATIVE); LEUKO ESTERASE NEGATIVE (NEGATIVE); NITRITE NEGATIVE (NEGATIVE); UROBILINOGEN 0.2 E.U./dl (0.2-1.0)
[2017-08-25 14:20] LABS: BACTERIA 4+; RBC 31-40 rbc/hpf (0-2)
[2017-08-25] MEDS ORDERED: NORCO 10-325 T1 EACH PO (15:57)
[2017-09-30] MEDS ORDERED: MEDROL DOSEPAK4 MG PO (10:14)
[2017-09-30] MEDS ORDERED: CYCLOBENZAPRINE10 MG PO (10:14)
== END 2017-08-25 16:04 | disposition home or self-care (01) ==
LOC: ED 12:25
PROVIDERS: Emergency Medicine
DX: N83.201 Unspecified ovarian cyst, right side (principal); R10.31 Right lower quadrant pain; F17.200 Nicotine dependence, unspecified, uncomplicated; J44.9 Chronic obstructive pulmonary disease, unspecified; K21.9 Gastro-esophageal reflux disease without esophagitis; E78.5 Hyperlipidemia, unspecified; G43.909 Migraine, unspecified, not intractable, without status migrainosus; E66.9 Obesity, unspecified; Z68.34 Body mass index [BMI] 34.0-34.9, adult; Z87.442 Personal history of urinary calculi; Z90.710 Acquired absence of both cervix and uterus; Z98.890 Other specified postprocedural states; Z79.899 Other long term (current) drug therapy; Z85.43 Personal history of malignant neoplasm of ovary

== ENCOUNTER 2017-08-29 01:26 | Emergency (ER) | payer OTHER ==
[~2017-08-29] VITALS: Ht 162.5 cm; Wt 86.2 kg
[~2017-08-29 01:26] MED LIST changes: +LETROZOLE2.5 M2 PO; +NORCO 10-325 T1 EACH PO
[2017-08-29 02:27] LABS: BASO % 0.3 % (0.0-1.0); EOS # 0.2 10*3/uL (0.0-0.4); EOS % 1.4 % (1.0-4.0); HEMOGLOBIN 13.8 g/dl (12.0-16.0); LYMPH # 2.9 10*3/uL (1.3-4.4); LYMPH % 25.1 % (27.0-41.0); MEAN CELL VOLUME 89.6 fl (81.0-99.0); MEAN CORPUSCULAR HGB 29.4 pg (27.0-31.0); MEAN CORPUSCULAR HGB CONC 32.9 g/dl (33.0-37.0); MEAN PLATELET VOLUME 10.7 fl (9.6-12.3); MONO # 0.7 10*3/uL (0.1-1.0); MONO % 5.5 % (3.0-9.0); NEUT # 7.9 10*3/uL (2.3-7.9); NEUT % 67.4 % (47.0-73.0); PLATELET COUNT AUTOMATED 247 10*3/uL (130-400); RED BLOOD COUNT 4.69 10*6/uL (4.10-5.10); RED CELL DISTRI WIDTH 13.8 % (0-14.5); WHITE BLOOD COUNT 11.7 10*3/uL (4.8-10.8)
[2017-08-29 02:38] LABS: ALBUMIN 3.5 gm/dl (3.1-4.5); ALKALINE PHOSPHATASE 95 U/L (45-117); BUN 13 mg/dl (7-24); CHLORIDE 106 mmol/L (98-107); CREATININE 0.93 mg/dL (0.55-1.02); LIPASE 68 U/L (73-393); POTASSIUM 3.7 mmol/L (3.5-5.1); SGOT/AST 10 IU/L (3-35); SGPT/ALT 15 U/L (12-78); SODIUM 136 mmol/L (136-145); TOTAL PROTEIN 6.6 gm/dL (6.4-8.2)
[2017-08-29 03:32] LABS: BILIRUBIN NEGATIVE (NEGATIVE); BLOOD NEGATIVE (NEGATIVE); CLARITY SL CLOUDY (CLEAR); COLOR YELLOW (YELLOW); GLUCOSE NEGATIVE (NEGATIVE); KETONE NEGATIVE (NEGATIVE); LEUKO ESTERASE NEGATIVE (NEGATIVE); NITRITE NEGATIVE (NEGATIVE); UROBILINOGEN 0.2 E.U./dl (0.2-1.0)
[2017-08-29 03:40] LABS: EPITHELIAL CELLS TNTC; RBC 0-2 rbc/hpf (0-2)
[2017-08-29 03:49] LABS: URINE AMPHETAMINES > 1000 (1000ng/ml); URINE BARBITURATES < 200 (200ng/ml); URINE BENZODIAZEPINES > 200 (200ng/ml); URINE CANNABINOIDS (THC) < 50 (50ng/ml); URINE COCAINE < 300 (300ng/ml); URINE METHADONE < 300 (300ng/ml); URINE OPIATES > 300 (300ng/ml)
[2017-08-29 03:50] LABS: URINE PHENCYCLIDINE < 25 (25ng/ml)
[2017-09-30] MEDS ORDERED: MEDROL DOSEPAK4 MG PO (10:14)
[2017-09-30] MEDS ORDERED: CYCLOBENZAPRINE10 MG PO (10:14)
== END 2017-08-29 06:42 | disposition home or self-care (01) ==
LOC: ED 01:26
PROVIDERS: Emergency Medicine
DX: R10.2 Pelvic and perineal pain (principal); J44.9 Chronic obstructive pulmonary disease, unspecified; K21.9 Gastro-esophageal reflux disease without esophagitis; E78.5 Hyperlipidemia, unspecified; E66.9 Obesity, unspecified; F17.200 Nicotine dependence, unspecified, uncomplicated; Z68.34 Body mass index [BMI] 34.0-34.9, adult; Z79.899 Other long term (current) drug therapy

== ENCOUNTER 2017-10-27 02:51 | Emergency (ER) | payer OTHER ==
[~2017-10-27] VITALS: Wt 86.2 kg
[2017-10-27] MEDS ORDERED: PROTONIX40 MG PO (03:15)
[2017-10-27 03:39] LABS: BASO % 0.3 % (0.0-1.0); EOS # 0.2 10*3/uL (0.0-0.4); EOS % 2.2 % (1.0-4.0); HEMATOCRIT 42.3 % (37.0-47.0); HEMOGLOBIN 14.2 g/dl (12.0-16.0); LYMPH # 3.6 10*3/uL (1.3-4.4); LYMPH % 39.6 % (27.0-41.0); MEAN CELL VOLUME 90.2 fl (81.0-99.0); MEAN CORPUSCULAR HGB 30.3 pg (27.0-31.0); MEAN CORPUSCULAR HGB CONC 33.6 g/dl (33.0-37.0); MEAN PLATELET VOLUME 10.1 fl (9.6-12.3); MONO # 0.7 10*3/uL (0.1-1.0); MONO % 7.9 % (3.0-9.0); NEUT # 4.5 10*3/uL (2.3-7.9); NEUT % 49.4 % (47.0-73.0); PLATELET COUNT AUTOMATED 317 10*3/uL (130-400); RED BLOOD COUNT 4.69 10*6/uL (4.10-5.10); RED CELL DISTRI WIDTH 14.2 % (0-14.5)
[2017-10-27 03:52] LABS: BILIRUBIN NEGATIVE (NEGATIVE); BLOOD NEGATIVE (NEGATIVE); CLARITY SL CLOUDY (CLEAR); COLOR YELLOW (YELLOW); GLUCOSE NEGATIVE (NEGATIVE); KETONE NEGATIVE (NEGATIVE); LEUKO ESTERASE NEGATIVE (NEGATIVE); NITRITE POSITIVE (NEGATIVE); SPECIFIC GRAVITY >= 1.030 (1.005-1.030); UROBILINOGEN 0.2 E.U./dl (0.2-1.0)
[2017-10-27 03:56] LABS: ALBUMIN 3.7 gm/dl (3.1-4.5); CREATININE 1.36 mg/dL (0.55-1.02); TOTAL PROTEIN 7.1 gm/dL (6.4-8.2)
[2017-10-27 04:01] LABS: URINE AMPHETAMINES < 1000 (1000ng/ml); URINE BARBITURATES < 200 (200ng/ml); URINE BENZODIAZEPINES > 200 (200ng/ml); URINE CANNABINOIDS (THC) < 50 (50ng/ml); URINE COCAINE < 300 (300ng/ml); URINE METHADONE < 300 (300ng/ml); URINE OPIATES > 300 (300ng/ml)
[2017-10-27 04:02] LABS: URINE PHENCYCLIDINE < 25 (25ng/ml)
[2017-10-27 04:04] LABS: BACTERIA 3+; EPITHELIAL CELLS 40-45
[2017-10-27] MEDS ORDERED: SEPTDS PO (06:55)
== END 2017-10-27 07:00 | disposition home or self-care (01) ==
LOC: ED 02:51
PROVIDERS: Emergency Medicine
DX: N39.0 Urinary tract infection, site not specified (principal); R50.9 Fever, unspecified; R21 Rash and other nonspecific skin eruption; J44.9 Chronic obstructive pulmonary disease, unspecified; K21.9 Gastro-esophageal reflux disease without esophagitis; E78.5 Hyperlipidemia, unspecified; E66.9 Obesity, unspecified; G43.909 Migraine, unspecified, not intractable, without status migrainosus; Z68.34 Body mass index [BMI] 34.0-34.9, adult; Z79.899 Other long term (current) drug therapy; Z87.891 Personal history of nicotine dependence

== ENCOUNTER 2018-01-22 00:42 | Emergency (ER) | payer OTHER ==
[~2018-01-22] VITALS: Ht 162.5 cm; Wt 90.7 kg
[~2018-01-22 00:42] MED LIST changes: +PROTONIX40 MG PO; +SEPTDS PO
[2018-01-22] MEDS ORDERED: IBU800 MG PO (01:56)
[2018-01-22] MEDS ORDERED: CYCLOBENZAPRINE10 MG PO (01:56)
== END 2018-01-22 02:29 | disposition home or self-care (01) ==
LOC: ED 00:42
DX: M54.2 Cervicalgia (principal); R51 Headache; R20.2 Paresthesia of skin; J44.9 Chronic obstructive pulmonary disease, unspecified; K21.9 Gastro-esophageal reflux disease without esophagitis; E78.1 Pure hyperglyceridemia; G43.909 Migraine, unspecified, not intractable, without status migrainosus; E66.9 Obesity, unspecified; F17.200 Nicotine dependence, unspecified, uncomplicated; Z68.30 Body mass index [BMI] 30.0-30.9, adult; Z90.710 Acquired absence of both cervix and uterus; Z79.899 Other long term (current) drug therapy; W10.9XXA Fall (on) (from) unspecified stairs and steps, initial encounter; Y93.89 Activity, other specified; Y92.008 Other place in unspecified non-institutional (private) residence as the place of occurrence of the external cause; Y99.8 Other external cause status

== ENCOUNTER 2018-01-24 00:33 | Emergency (ER) | payer OTHER ==
[~2018-01-24] VITALS: Ht 162.5 cm; Wt 90.7 kg
--- NOTE | ~2018-01-24 | EKG ---
[place], [place] ELECTROCARDIOGRAM REPORT NAME: VJ ROGERS UNIT #: [id number] ROOM: DOCTOR: EPIPHANY DRAFT REPORT BIRTHDATE: [birth year] [facility] Test Date: 2018-01-24 Test Time: 00:38:02 Pat Name: VJ ROGERS Department: Room: Gender: F Music Promoter: : 1990 Requested By: ROOSEVELT GARCIA Order Number: [id number] Reading MD: Kieran Fay MD Measurements Intervals [place] Rate: 103 P: 49 WY: 142 QRS: 24 QRSD: 80 T: 32 QT: 320 QTc: 419 Interpretive Statements Sinus tachycardia Low voltage, precordial leads Electronically Signed On 01-24-2018 4:22:16 PST by Kieran Fay MD CM:EKGRPT:ELECTROCARDIOGRAM REPORT [id number] ROOSEVELT SERRANO DRAFT REPORT ROOSEVELT GARCIA DO
[~2018-01-24 00:33] MED LIST changes: +IBU800 MG PO
[2018-01-24 00:53] LABS: BASO # 0.1 10*3/uL (0.0-0.1); BASO % 0.6 % (0.0-1.0); EOS # 0.2 10*3/uL (0.0-0.4); EOS % 1.5 % (1.0-4.0); HEMATOCRIT 43.4 % (37.0-47.0); HEMOGLOBIN 14.9 g/dl (12.0-16.0); LYMPH # 4.2 10*3/uL (1.3-4.4); LYMPH % 38.8 % (27.0-41.0); MEAN CELL VOLUME 89.9 fl (81.0-99.0); MEAN CORPUSCULAR HGB 30.8 pg (27.0-31.0); MEAN CORPUSCULAR HGB CONC 34.3 g/dl (33.0-37.0); MEAN PLATELET VOLUME 11.5 fl (9.6-12.3); MONO # 0.7 10*3/uL (0.1-1.0); MONO % 6.6 % (3.0-9.0); NEUT # 5.6 10*3/uL (2.3-7.9); NEUT % 52.1 % (47.0-73.0); PLATELET COUNT AUTOMATED 328 10*3/uL (130-400); RED BLOOD COUNT 4.83 10*6/uL (4.10-5.10); RED CELL DISTRI WIDTH 13.2 % (0-14.5); WHITE BLOOD COUNT 10.7 10*3/uL (4.8-10.8)
[2018-01-24 01:25] LABS: ACT PARTIAL THROMBO TIME 26.3 SECONDS (20.8-31.5); INTERNATIONAL NORM RATIO 0.9 (2.0-3.5)
[2018-01-24 01:33] LABS: ALBUMIN 3.5 gm/dl (3.1-4.5); ALKALINE PHOSPHATASE 128 U/L (45-117); BUN 14 mg/dl (7-24); CHLORIDE 107 mmol/L (98-107); CREATININE 1.01 mg/dL (0.55-1.02); POTASSIUM 4.3 mmol/L (3.5-5.1); SGOT/AST 12 IU/L (3-35); SGPT/ALT 19 U/L (12-78); SODIUM 146 mmol/L (136-145); TOTAL PROTEIN 6.8 gm/dL (6.4-8.2)
[2018-01-24 01:35] LABS: TROPONIN I < 0.015 ng/ml (<0.045)
== END 2018-01-24 03:52 | disposition home or self-care (01) ==
LOC: ED 00:33
PROVIDERS: Student in an Organized Health Care Education/Training Program
DX: R07.89 Other chest pain (principal); J44.9 Chronic obstructive pulmonary disease, unspecified; K21.9 Gastro-esophageal reflux disease without esophagitis; E78.1 Pure hyperglyceridemia; G43.909 Migraine, unspecified, not intractable, without status migrainosus; E66.9 Obesity, unspecified; F17.200 Nicotine dependence, unspecified, uncomplicated; Z88.8 Allergy status to other drugs, medicaments and biological substances; Z79.899 Other long term (current) drug therapy; Z87.442 Personal history of urinary calculi; Z68.30 Body mass index [BMI] 30.0-30.9, adult; Z90.710 Acquired absence of both cervix and uterus

== ENCOUNTER 2018-03-17 21:10 | Emergency (ER) | payer OTHER ==
[~2018-03-17] VITALS: Ht 162.5 cm; Wt 90.7 kg
[2018-03-17 21:54] LABS: BASO # 0.1 10*3/uL (0.0-0.1); BASO % 0.5 % (0.0-1.0); EOS # 0.2 10*3/uL (0.0-0.4); EOS % 1.7 % (1.0-4.0); HEMATOCRIT 46.9 % (37.0-47.0); HEMOGLOBIN 15.9 g/dl (12.0-16.0); LYMPH % 27.8 % (27.0-41.0); MEAN CELL VOLUME 90.4 fl (81.0-99.0); MEAN CORPUSCULAR HGB 30.6 pg (27.0-31.0); MEAN CORPUSCULAR HGB CONC 33.9 g/dl (33.0-37.0); MEAN PLATELET VOLUME 10.7 fl (9.6-12.3); MONO # 0.6 10*3/uL (0.1-1.0); MONO % 5.6 % (3.0-9.0); NEUT % 63.9 % (47.0-73.0); PLATELET COUNT AUTOMATED 245 10*3/uL (130-400); RED BLOOD COUNT 5.19 10*6/uL (4.10-5.10); RED CELL DISTRI WIDTH 12.9 % (0-14.5); WHITE BLOOD COUNT 10.9 10*3/uL (4.8-10.8)
[2018-03-17 22:08] LABS: ALBUMIN 3.6 gm/dl (3.1-4.5); ALKALINE PHOSPHATASE 112 U/L (45-117); BUN 15 mg/dl (7-24); CHLORIDE 107 mmol/L (98-107); CREATININE 0.82 mg/dL (0.55-1.02); POTASSIUM 4.2 mmol/L (3.5-5.1); SGOT/AST 12 IU/L (3-35); SGPT/ALT 23 U/L (12-78); SODIUM 139 mmol/L (136-145); TOTAL PROTEIN 7.5 gm/dL (6.4-8.2)
[2018-03-17 22:34] LABS: BILIRUBIN NEGATIVE (NEGATIVE); BLOOD 1+ (NEGATIVE); CLARITY CLEAR (CLEAR); COLOR YELLOW (YELLOW); GLUCOSE NEGATIVE (NEGATIVE); KETONE NEGATIVE (NEGATIVE); LEUKO ESTERASE NEGATIVE (NEGATIVE); NITRITE NEGATIVE (NEGATIVE); SPECIFIC GRAVITY 1.015 (1.005-1.030); UROBILINOGEN 0.2 E.U./dl (0.2-1.0)
[2018-03-17 22:45] LABS: EPITHELIAL CELLS 20-25
[2018-03-17 22:46] LABS: BACTERIA 1+; WBC 0-2 wbc/hpf (0-5)
== END 2018-03-18 06:15 | disposition short-term general hospital (02) ==
LOC: ED 21:10
PROVIDERS: Physician Assistant
DX: G43.909 Migraine, unspecified, not intractable, without status migrainosus (principal); M54.2 Cervicalgia; M54.5 Low back pain; M54.6 Pain in thoracic spine; R50.9 Fever, unspecified; J44.9 Chronic obstructive pulmonary disease, unspecified; K21.9 Gastro-esophageal reflux disease without esophagitis; E78.5 Hyperlipidemia, unspecified; E78.1 Pure hyperglyceridemia; E66.9 Obesity, unspecified; Z68.30 Body mass index [BMI] 30.0-30.9, adult; Z88.8 Allergy status to other drugs, medicaments and biological substances; Z79.899 Other long term (current) drug therapy; Z90.710 Acquired absence of both cervix and uterus

== ENCOUNTER 2018-08-30 17:21 | Emergency (ER) | payer OTHER ==
[~2018-08-30] VITALS: Wt 108.9 kg
== END 2018-08-30 19:58 | disposition home or self-care (01) ==
LOC: ED 17:21
DX: G43.909 Migraine, unspecified, not intractable, without status migrainosus (principal); M54.2 Cervicalgia; M43.6 Torticollis; J44.9 Chronic obstructive pulmonary disease, unspecified; K21.9 Gastro-esophageal reflux disease without esophagitis; E78.5 Hyperlipidemia, unspecified; E66.9 Obesity, unspecified; F17.200 Nicotine dependence, unspecified, uncomplicated; Z88.8 Allergy status to other drugs, medicaments and biological substances; Z79.899 Other long term (current) drug therapy; Z68.34 Body mass index [BMI] 34.0-34.9, adult